=== PATIENT | male | born 1960 | race Caucasian/White ===

== ENCOUNTER 2024-11-11 05:51 | Inpatient (IN) ==
--- NOTE | 2024-11-05 09:30 | Anesthesiology Consultation ---
Date of Service November 05, 2024 Assessment & Plan (1) Encounter for pre-operative examination: Infectious disease screening: Per assessment on 11/05/24- No known recent infectious disease contacts or current infectious disease symptoms. Chart Review Chart Review: Acceptable Risk for Surgery and Patient NOT seen in Pre Admission Testing History Surgery Operation Date: 11/11/24 07:30 Proposed Procedures p Robotic Assisted Laparoscopic Radical Retropubic Prostatectomy, Possible Open, Possible Pelvic Pain Lymph Node Dissection - Cristóbal Alfaro MD Height/Weight Height: 5 ft 11 in Weight: 79.379 kg Allergies Allergy/AdvReac Type Severity Reaction Status Date / Time No Known Allergies Allergy Verified 11/05/24 08:21 Medications Home Medications Medication Instructions Recorded Confirmed Last Taken alendronate 70 mg tablet 70 mg PO Q7D 05/08/24 11/05/24 Unknown cholecalciferol (vitamin D3) 50 50 mcg PO DAILY 05/08/24 11/05/24 Unknown mcg (2,000 unit) capsule rosuvastatin 10 mg tablet 10 mg PO QAM 05/08/24 11/05/24 Unknown Past Medical History Medical History HLD (hyperlipidemia) Nephrolithiasis hx Prostate cancer dx 06/2024 Past Surgical History Surgical History History of extracorporeal shockwave lithotripsy (ESWL) Hx of colonoscopy (2024) Hx of wisdom tooth extraction S/P cystoscopy with ureteral stent placement w/laser destruction kidney stones Social History Smoking Status: Never smoker Do You Dip or Chew Tobacco: No (quit years ago) Hx Alcohol Use: No Hx Substance Use: No substance use type: does not use Testing Laboratory Results 10/30/24 WBC 7.1 H/H 13.5/39.8 PLATELETS 209 SODIUM 140 POTASSIUM 4.6 CHLORIDE 105 CO2 27 BUN 17 CREATININE 0.8 GLUCOSE 89 URINE CULTURE no growth Electrocardiogram Date: 10/30/24 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 "No acute ischemic changes" Chest X-Ray Date: 10/30/24 Findings: + NAD
[2024-11-11] MEDS: HEPARIN SOD 5,000 UNIT/0.5 ML VIAL SC SCH (06:29)
[2024-11-11] MEDS: LR 15ML/HR IV SCH (06:29)
[2024-11-11] MEDS ORDERED: DEXAMETHASONE SOD INJ 4 MG/ML VIAL ONE (07:01)
[2024-11-11] MEDS ORDERED: MIDAZOLAM HCL 1 MG/ML 2ML VIAL ONE (07:01)
[2024-11-11] MEDS ORDERED: SUGAMMADEX SODIUM 200 MG/2 ML VIAL IV ONE (07:01)
[2024-11-11] MEDS ORDERED: ROCURONIUM BROMIDE 10 MG/ML 5 ML VIAL IV ONE (07:01)
[2024-11-11] MEDS ORDERED: ATROPINE SULFATE 0.1 MG/ML 10ML SYR IV PRN (07:01)
[2024-11-11] MEDS ORDERED: PROMETHAZINE HCL 6.25 MG in SODIUM CHLORIDE 0.9% 50 ML IV PRN (07:01)
[2024-11-11] MEDS ORDERED: ONDANSETRON INJ 2 MG/ML 2 ML VIAL IV PRN ×2 (07:01→11:47)
[2024-11-11] MEDS ORDERED: ONDANSETRON INJ 2 MG/ML 2 ML VIAL ONE (07:01)
[2024-11-11] MEDS ORDERED: PROPOFOL IV EMULSION 10 MG/ML 20 ML VIAL IV ONE (07:01)
[2024-11-11] MEDS ORDERED: LIDOCAINE 2% 2 ML VIAL/AMP(20MG/ML) INFIL ONE (07:01)
[2024-11-11] MEDS ORDERED: HYDROmorphone INJ 1 MG/ML SYRINGE IV PRN (07:01)
--- NOTE | 2024-11-11 07:24 | History & Physical Bridge Note ---
Date of Service November 11, 2024 History & Physical Bridge Note I have examined the patient, reviewed the History & Physical and in the interval since the performance of the History & Physical I have noted the following changes of clinical significance: no changes noted
[2024-11-11] MEDS ORDERED: ePHEDrine sulfate 50 MG/5 ML SYR ONE (08:17)
[2024-11-11] MEDS: SURGICEL ABSORB HEMOSTAT 2IN X 14IN TOP ONE (09:06)
[2024-11-11] MEDS: BUPIVACAINE 0.5 % 5 MG/1 ML MPF 30ML VIAL ONE (10:17)
[2024-11-11] MEDS: BUPIVACAINE LIPOSOME 1.3% 266 MG/20 ML VIAL ONE (10:17)
--- NOTE | 2024-11-11 10:31 | Operative Report ---
[facility] Post Operative Report Pre & Post Diagnosis Operation Date: 11/11/24 07:30 Pre-Op Diagnosis: Malignant Neoplasm of Prostate Post-Op Diagnosis: Malignant Neoplasm of Prostate I identified the patient and participated in the time-out.: Yes Procedure Operation Date: 11/11/24 07:30 Actual Procedures p Robotic Assisted Laparoscopic Radical Retropubic Prostatectomy, Possible Pelvic Pain Lymph Node Dissection(Not Applicable) - Cristóbal Alfaro MD Surgeon Cristóbal Alfaro MD Rn Clinician Isak Skelton, IBIS, Christi ROE Estimated Blood Loss 25 (3) Findings Consistent with Post-Op Diagnosis Specimens 1. Periprostatic fat 2. Prostate and seminal vesicles 3. Left pelvic lymph nodes 4. Right pelvic lymph nodes Description of Procedure The patient was identified in the preoperative holding area, appropriate informed consents were reviewed and completed, and he was transported to the operating suite. Subcutaneous heparin was administered in the pre-operative holding area. Upon arrival in the operating suite, he received appropriate antibiotics and general anesthesia and was positioned supine and prepped in sterile fashion. A Polanco catheter was inserted in the sterile field. A Veress needle was passed per umbilicus with uniform insufflation of the abdomen to 15mmHg. He was placed in 26 degrees of Trendelenburg. A periumbilical incision was then made to accommodate a robotic port and entry was made using a visual obturator. Inspection of the abdomen was carried out, and there was no evidence of traumatic entry or injury secondary to the Veress needle. After confirming a clear anterior abdominal wall, ports were subsequently placed in standard robotic prostatectomy fashion without incident. To begin the robotic portion of the case, the left lateral aspect of the sigmoid was mobilized off of the left pelvic side wall to allow the pouch of Dl to be appropriately visualized. I then made an incision in the pouch of Dl, overlying the seminal vesicles. Both SVs as well as the ampullae of the vasa were entirely dissected, with the vasa transected 3cm from the prostate. Dissection posterior to the prostate was completed, splitting Denonvilliers' fascia. The medial umbilical ligaments were then controlled with bipolar electrocautery just inferior to the umbilicus. Following cauterization, they were divided utilizing monopolar cautery. A peritoneal incision was carried from this location to the medial aspect of the internal inguinal rings bilaterally with care to avoid opening through the ring. This incision was concluded when the vas deferens was reached. Dissection of the bladder and prostate off of the posterior aspect of the pubic arch was completed allowing full visualization of the prostate. The fat overlying the prostate was removed en bloc and passed off the table as a specimen labeled "periprostatic fat". The endopelvic fascia was cleared during this portion of the procedure, and subsequently opened - first on the right and then the left. The incision through the endopelvic fascia began near the prostate-bladder junction and was carried to the apex with extreme care to preserve all lateral levator musculature as well as the periurethral musculature and sphincter complex. I additionally preserved the puboprostatic ligaments. I then controlled the DVC with a 2-0 V-lock suture in overlapping/figure of 8 fashion. The lymph node dissection was then conducted. External iliac vessels were identified on the pelvic side wall. The packet of fat and lymphatic tissue that resides just under the iliac vein was elevated and off of the vein with a split and roll technique. The packet was dissected laterally to the circumflex vein and distally to the obturator nerve which was preserved. The proximal aspect of the packet was carried towards the bifurcation of the iliac vessels. A combination of monopolar and bipolar cautery were used to assist with control. After completing the dissection on both sides, the packets were collected and passed off of the table as specimens labeled "pelvic lymph nodes". My attention then returned to the prostate, with identification of the bladder neck aided by gentle traction on the Polanco catheter and lateral to medial pressure at the presumed level of the bladder neck with the robotic instruments. An anterior cystotomy was made, the Polanco balloon deflated and the catheter guided through the incision to allow anterior retraction. I attempted to preserve maximal bladder neck musculature as I circumferentially dissected around the bladder neck. After incision through the posterior aspect of the mucosa, the dissection was carried through detrusor muscle until the bilateral a mpullae of the vasa were identified. The previously dissected vasa and SVs were brought through the incision and used to elevated the prostate anteriorly. An incision in the lateral prostatic fascia was then made bilaterally to facilitate control of the vascular pedicles and preservation of the nerve bundles. Vasculature running along the posterior/lateral aspect of the prostate was preserved as well as the tissue containing the nerves. The pedicles were then controlled with a series of Weck clips. The apical attachments of the prostate were remaining at that stage. The DVC was divided after control with bipolar cautery over the prostate. Continuous inspection from anterior and lateral views allowed me to closely follow the apical contour of the prostate and maximally preserve urethral length and tissue. The prostate was entirely freed at that point, and collected in an EndoCatch bag before being moved out of the field of vision. Hemostasis was obtained with directed suture ligation of any bleeding vessels along the neurovascular bundles utilizing 3-0 v-Lock suture. Anastomosis of the bladder and urethra was completed utilizing a double armed V-Lock stitch. A new Polanco catheter was inserted and the anastomosis tested with irrigation. There was no evidence of leak. A tsering style stitch was placed bilaterally to functionally marsupialize the area of the lymph node dissection. The robot was undocked, the specimen extracted through expansion of the mt- umbilical camera port. The fascia was closed with a series of 0-PDS figure of 8 stitches. All skin incisions were closed with 4-0 monocryl. All incisions and muscle layers were anesthesized with a combination of marcaine and Exparel. The case was concluded and the patient taken to the PACU in stable condition. IBIS Bravo and BHUPINDER Nova assisted throughout the case from incision to closure. I attest to the content of the Intraoperative Record and any orders documented therein. Any exceptions are noted below.
[2024-11-11 11:08] LABS: Hematocrit (blood only) 38.8 % (42.0-52.0); Hemoglobin 12.9 g/dl (14.0-18.0); Immature Granulocytes # (auto) 0.06 K/uL (0.01-0.20); Immature Granulocytes % (auto) 0.5 %; Mean Corpuscular Hemoglobin 29.4 pg (25.0-34.0); Mean Corpuscular Volume 88.4 fL (80.0-100.0); Platelet Count 205 K/uL (130-400); RDW Standard Deviation 40.7 fL (36.4-46.3); Red Blood Count 4.39 M/uL (4.70-6.10); White Blood Count 12.40 K/ul (4.8-10.8)
[2024-11-11 11:23] LABS: Anion Gap 6.0 (3-11); Blood Urea Nitrogen 22.0 mg/dl (6-23); Calcium 9.2 mg/dl (8.6-10.3); Carbon Dioxide 24.0 mmol/L (21-32); Chloride 108.0 mmol/L (98-107); Creatinine Clr Calc Pharmacy 85.0 ml/min; Glucose 170.0 mg/dl (70-99(Fasting)); Potassium 4.1 mmol/L (3.5-5.1); Sodium 138.0 mmol/L (136-145)
[2024-11-11] MEDS ORDERED: HYDROmorphone INJ 0.5 MG/0.5 ML SYR IV PRN ×2 (11:47)
[2024-11-11] MEDS: SODIUM CHLORIDE 0.9% 1,000 ML IV SCH (12:04)
--- NOTE | 2024-11-11 14:00 | Anesthesiology Progress Note ---
Date of Service November 11, 2024 Anesthesia Post Procedure Vital Signs Vital Signs: Temp Pulse Pulse Resp BP Pulse Ox O2 Del Method 11/11/24 13:40 36.6 C 74 16 119/63 98 Room Air 11/11/24 12:50 36.4 C L 69 16 109/61 95 Room Air 11/11/24 12:07 36.5 C 67 14 107/60 95 Room Air 11/11/24 11:40 36.2 C L 62 16 100/63 100 Room Air 11/11/24 11:25 63 16 101/57 L 96 Room Air 11/11/24 11:15 36 C L 62 12 96/52 L 97 Room Air 11/11/24 11:05 64 14 99/48 L 100 Nasal Cannula 11/11/24 10:55 69 16 121/59 L 98 Nasal Cannula 11/11/24 10:45 73 13 110/86 100 Nasal Cannula 11/11/24 10:38 36 C L 74 24 118/70 97 Nasal Cannula 11/11/24 06:36 36.5 C 57 L 16 132/79 100 Room Air O2 Flow Rate 11/11/24 13:40 11/11/24 12:50 11/11/24 12:07 11/11/24 11:40 11/11/24 11:25 11/11/24 11:15 11/11/24 11:05 2 11/11/24 10:55 2 11/11/24 10:45 4 11/11/24 10:38 4 11/11/24 06:36 Transfer of Care Handoff Completed per policy Notes Mental Status: alert / awake / arousable and participated in evaluation Patient Amnestic to Procedure: Yes Nausea / Vomiting: adequately controlled Pain: adequately controlled Airway Patency, RR, SpO2: stable & adequate BP & HR: stable & adequate Hydration State: stable & adequate Anesthetic Complications: no major complications apparent and Pt Satisfied with anesthetic care
[2024-11-11] MEDS: ACETAMINOPHEN 500 MG TAB PO PRN (14:05)
[2024-11-11] MEDS: MAGNESIUM HYDROXIDE SUSP 30 ML UDC PO PRN (17:38)
[2024-11-11 19:41] VITALS: RESP 18
[2024-11-11] MEDS: DOCUSATE SODIUM 100 MG CAP PO SCH (21:31)
[2024-11-11] MEDS: HEPARIN SOD 5,000 UNIT/0.5 ML VIAL SQ SCH (21:31)
[2024-11-12 03:15] VITALS: O2SAT 97
[2024-11-12 07:09] LABS: Hematocrit (blood only) 35.8 % (42.0-52.0); Hemoglobin 12.3 g/dl (14.0-18.0); Immature Granulocytes # (auto) 0.05 K/uL (0.01-0.20); Immature Granulocytes % (auto) 0.4 %; Mean Corpuscular Hemoglobin 30.5 pg (25.0-34.0); Mean Corpuscular Volume 88.8 fL (80.0-100.0); Platelet Count 185 K/uL (130-400); RDW Standard Deviation 41.1 fL (36.4-46.3); Red Blood Count 4.03 M/uL (4.70-6.10); White Blood Count 12.36 K/ul (4.8-10.8)
[2024-11-12 07:31] LABS: Anion Gap 4.0 (3-11); Blood Urea Nitrogen 13.0 mg/dl (6-23); Calcium 8.5 mg/dl (8.6-10.3); Carbon Dioxide 25.0 mmol/L (21-32); Chloride 110.0 mmol/L (98-107); Creatinine Clr Calc Pharmacy 109.0 ml/min; Glucose 151.0 mg/dl (70-99(Fasting)); Potassium 4.0 mmol/L (3.5-5.1); Sodium 139.0 mmol/L (136-145)
[2024-11-12] MEDS: ROSUVASTATIN CALCIUM 10 MG TAB PO SCH (07:51)
[2024-11-12 08:00] VITALS: PULSE 68; TEMP 98.4
--- NOTE | 2024-11-12 10:59 | Urology Progress Note ---
Date of Service November 12, 2024 Assessment & Plan (1) Prostate cancer: Plan Postop day #1 status post robotic prostatectomy Continue ambulation Hold on clear liquids for now We will check in a few hours to see if he is ready for discharge home Admission and Anticipated Discharge Date Admission Date: November 11, 2024 Subjective Doing pretty well on postoperative day #1 status post prostatectomy Some distention of his abdomen after consuming some liquids but otherwise feels great Urine clear Physical Exam Physical Exam: Incisions all appropriate Urine clear Results & Data Vital Signs (Past 12 Hours) Vital Signs Temp Pulse Resp BP BP Pulse Ox O2 Del Method 11/12/24 08:00 36.9 C 68 18 114/78 97 Room Air 11/12/24 03:12 36.7 C 66 18 122/67 97 Room Air 11/11/24 23:00 36.6 C 76 18 116/62 96 Room Air [facility] Care Time/CCT Total # of Minutes Spent Total Time Spent with Patient: Total time spent is greater than 50% in coordination of care (as documented) at patient's floor/unit and/or counseling patient: Coding Level of Care Code None Diagnoses Prostate cancer C61
[2024-11-12 14:32] VITALS: BP 122/67
--- NOTE | 2024-11-12 15:49 | Discharge Summary ---
Date of Service November 12, 2024 Admission HPI Per Admitting Provider 64-year-old male with prostate cancer who presented for robotic prostatectomy Admission Exam Per Admitting Provider no inguinal or umbilical hernias no surgical scars Constitutional well developed and well nourished Neck neck nontender Respiratory normal respiratory effort; no respiratory distress and does not use accessory muscles Cardiovascular Rate/Rhythm: regular rate Vessels: radial pulses present Extremities: no edema Gastrointestinal (Abdomen) Inspection/Auscultation: abdomen normal to inspection Percussion/Palpation: abdomen soft; abdomen nontender and no guarding Musculoskeletal Head/Neck/Chest: normocephalic and head atraumatic Extremities: extremities normal to inspection Skin no rashes and no lesions Trauma: no evidence of skin trauma Neurologic awake; not obtunded Speech / Cognition: normal speech Motor/Sensory: no tremor Psychiatric Orientation: alert and oriented x 3 Genitourinary no CVA tenderness Lymphatic no lymphadenopathy Principal Diagnosis Prostate cancer Discharge Exam Constitutional well developed and well nourished; no acute distress Respiratory normal respiratory effort; no respiratory distress and no labored breathing Gastrointestinal (Abdomen) Incisions appropriate Neurologic moves all extremities and awake Psychiatric A+Ox3, euthymic affect Genitourinary Polanco intact and draining clear yellow urine Discharge Data Allergies Allergy/AdvReac Type Severity Reaction Status Date / Time No Known Allergies Allergy Verified 11/11/24 06:04 Procedures Performed Operation Date: 11/11/24 07:30 Actual Procedures p Robotic Assisted Laparoscopic Radical Retropubic Prostatectomy, Pelvic Pain Lymph Node Dissection(Not Applicable) - Cristóbal Alfaro MD Hospital Course (1) Prostate cancer: Plan 64-year-old male admitted status post robotic prostatectomy Dr. Alfaro. Patient tolerated procedure well. No acute issues postoperatively. He remained afebrile and hemodynamically stable. Labs appropriate. Reported minimal pain. Ambulated without issue. Tolerated clear liquid diet without nausea or vomiting. Polanco draining clear yellow urine. He was discharged home on postop day #1 with a Polanco catheter in place. He was in stable condition at time of discharge. Discharge instructions were reviewed and all questions were answered. Total Time Total Time Spent Total Time Spent (In Minutes): 15 Discharge Plan Discharge Items Patient Disposition: Home - Self-Care Reason For Visit: Malignant Neoplasm of Prostate Discharge Diagnosis: Malignant Neoplasm of Prostate Activity: Per Instructions section Bathing Comment: OK to shower. No tub baths or soaks. Sexual Activity: Wait until after follow-up appointment Exercise/Sports: Wait until after follow-up appointment Non-emergency contact: Surgeon and Urologist Call non-emergency contact if: you have any medication questions, your symptoms worsen, your pain is not controlled, you have a fever, your wound has increased redness, your wound has increased drainage and your wound pain has increased Follow-up/Referrals: Cristóbal Alfaro MD [Physician] - Kali Leonardo MD [Primary Care Provider] - [facility],Nurse [FAKE FOR SCHEDULES] - Diet: Regular Addtl Attending Provider Instructions: Please take all medications as prescribed and keep all follow-ups as scheduled. Please call our office at [phone] with any questions, concerns or need to reschedule appointments for any reason. We are happy to assist you We have sent an antibiotic to your pharmacy of choice. Please begin antibiotic as prescribed the day BEFORE your scheduled catheter removal at [facility]. Please continue antibiotic as directed until complete. Activity: We recommend having someone with you for the first few days after surgery to help care for you. For the first 2 weeks after surgery, we would like you to get up and walk around your house. However, we recommend limit physical activity that would increase your heart rate. This will allow your body to rest and heal. Take naps if you feel tired. Don't lift anything heavier than 10 pounds, mow the law or ride a bicycle until your follow-up appointment. Please avoid long car rides. Home Care: Unless directed otherwise, drink 6 to 8 glasses of water a day (enough to keep your urine light colored). This will also help keep a healthy flow of urine. We recommend using a stool softener for the first two weeks to avoid constipation. Polanco Catheter or Suprapubic Catheter care: Keep the catheter well secured with either a leg back or leg strap with large bag. Empty your bag when it's about half full. You may notice some blood in the bag. This is normal after surgery and while the catheter is in place. Use mild soap (such as Dove or Dial) and water to wash the catheter and the head of your penis daily, or more frequently if needed. Return to your normal diet, we encourage good protein intake to promote healing. You may shower as normal. Please avoid tub baths or soaking until catheter removed and incisions well healed. Wearing sweat pants while you have the catheter is recommended, they will be more comfortable. Follow-up Your follow up appointments for having your catheter removed, and follow up with your physician should already be scheduled. If you have any questions regarding this, please contact our office. Your final pathology report will be discussed at your physician follow-up appointment. Call [facility] at [phone] right away if you have any of the following: Chest pain or trouble breathing (call 911 or go to the hospital) Fever of 101F or higher, uncontrolled vomiting Heavy bleeding, clots, or bright red blood from the catheter Catheter that falls out or stops draining Foul-smelling discharge from your catheter Redness, swelling, warmth, or increased pain at your incision site Drainage, pus, or bleeding from your incision Pending Studies at Discharge: Yes (pathology) Stand-Alone Forms: [facility] [employer], Smoking Cessation Medications and DC Order Prescriptions: New ciprofloxacin HCl 500 mg tablet 500 mg PO BID 3 Days Qty: 6 0RF docusate sodium [Colace] 100 mg capsule 100 mg PO BID Qty: 30 0RF Continued rosuvastatin 10 mg tablet 10 mg PO QAM cholecalciferol (vitamin D3) 50 mcg (2,000 unit) capsule 50 mcg PO DAILY alendronate 70 mg tablet 70 mg PO Q7D Discharge Orders: Discharge Order (Routine); Ordered 11/12/24 Ordered By: Christi Washington Admission Data Admit Date/Time: 11/11/24 10:46 Attending Provider: Cristóbal Alfaro Admit Provider: Cristóbal Alfaro Primary Care Provider: Kali Leonardo Other Interventions: Discharge Summary Assessment (RN) Last Done: 11/12/24 14:30 Coding Level of Care Code 65792 IN/OBS DISCH 30 MIN/LESS Diagnoses Prostate cancer C61
== END 2024-11-12 15:38 | disposition home or self-care (01) | DRG 708 ==
LOC: ASU 05:51 → 3W 10:46